=== PATIENT | male | born 1955 | race Caucasian/White ===

== ENCOUNTER 2021-01-01 08:35 | Day surgery (SDC) | payer MEDICARE, OTHER ==
[~2021-01-01 08:35] MED LIST: CEPH500 PO; THERA-D2000 UNIT PO; VITAMIN K-1500 MCG SL; Vitamin C100 M1 PO
--- NOTE | 2021-01-01 09:00 | NUR ---
patient arrived to [facility] recovery room. ambulated without difficulty. alert and oriented. denies chest pain or shortness of breath
--- NOTE | 2021-01-01 10:15 | NUR ---
Dr Nelson here to explain procedure and answer questions.
--- NOTE | 2021-01-01 13:15 | NUR ---
patient returned to [facility] recovery room via rcliner. A&O. denies pain. TR band in place to right radial artery. wrist board in place.
--- NOTE | 2021-01-01 13:52 | NUR ---
RIGHT RADIAL TR BAND SITE SOFT NON-TENDER WITH NO HEMATOMA,NO PULSATILE BLEEDING AND WRIST BOARD IN PLACE. SP02 PROBE ON RIGHT THUMB WITH SPO2 AT 97%. PT EATING LUNCH. PT DENIES CHEST PAIN. CALL LIGHT IN REACH.
--- NOTE | 2021-01-01 14:29 | NUR ---
RIGHT RADIAL SITE UNCHANGED. TR BAND AND WRIST BOARD REMAINS IN PLACE. REVIEW OF DISCHARGE INSTRUCTIONS GIVEN TO PATIENT ANDWIFE
--- NOTE | 2021-01-01 16:57 | NUR ---
PATIENT AND VERBALIZED UNDERSTANDING OF DISCHARGE INSTUCTIONS AND PRECAUTIONS. TR BAND REMOVED BY LAYLA AYERS. NO BLEEDING. NO HEMATOMA. CLOTH DOT PLACED OVER SITE. WRIST BOARD PLACED TO RIGHT WRIST. PATIENT TAKEN TO WAITING CAR WITH BY LAYLA AYERS.
== END 2021-01-01 22:59 | disposition home or self-care (01) ==
LOC: MHTC 08:35
DX: I35.0 Nonrheumatic aortic (valve) stenosis (principal); Z82.49 Family history of ischemic heart disease and other diseases of the circulatory system; Z88.8 Allergy status to other drugs, medicaments and biological substances
CPT/HCPCS: 76937; 93454; 99152; 99153; A9270; C1769; C1894; J1720; J2250; J3010; J7030; J7050; Q9967

== ENCOUNTER 2021-08-26 09:21 | Day surgery (SDC) | payer MEDICARE, OTHER ==
[~2021-08-26] VITALS: Ht 182.9 cm; Wt 74.0 kg
[2021-08-26] MEDS ORDERED: Aspir 8181 MG (10:20)
== END 2021-08-26 11:54 | disposition home or self-care (01) ==
LOC: ORSCSDS 09:21
PROVIDERS: Surgery
PROC: 0DBK8ZX Excision of Ascending Colon, Via Natural or Artificial Opening Endoscopic, Diagnostic (ICD-10-PCS; principal; 2021-08-26 10:45)
PROC: 0DBH8ZX Excision of Cecum, Via Natural or Artificial Opening Endoscopic, Diagnostic (ICD-10-PCS; principal; 2021-08-26 10:45)
DX: Z12.11 Encounter for screening for malignant neoplasm of colon (principal); Z86.010 Personal history of colon polyps; D12.0 Benign neoplasm of cecum; D12.2 Benign neoplasm of ascending colon; K57.30 Diverticulosis of large intestine without perforation or abscess without bleeding; I47.1 Supraventricular tachycardia; I35.0 Nonrheumatic aortic (valve) stenosis; Z79.82 Long term (current) use of aspirin
CPT/HCPCS: 88305; J2704; J7120

== ENCOUNTER → 2022-07-22 | Outpatient (CLI) | payer MEDICARE, OTHER ==
[~2022-07-22] MED LIST changes: +Aspir 8181 MG
== END | disposition home or self-care (01) ==
LOC: LAB 15:12 → LAB SHORT 15:12
DX: L03.031 Cellulitis of right toe (principal)
CPT/HCPCS: 87070; 87147; 87205

== ENCOUNTER 2024-09-23 16:08 | Emergency (ER) | payer MEDICARE, OTHER ==
[~2024-09-23] VITALS: Ht 182.9 cm; Wt 72.6 kg
[2024-09-23 17:00] VITALS: BP 140/97
== END 2024-09-23 18:40 | disposition home or self-care (01) ==
LOC: ER 16:08
DX: S66.922A Laceration of unspecified muscle, fascia and tendon at wrist and hand level, left hand, initial encounter (principal); Z95.2 Presence of prosthetic heart valve; Z91.048 Other nonmedicinal substance allergy status; Z88.8 Allergy status to other drugs, medicaments and biological substances; Z79.82 Long term (current) use of aspirin; Z79.899 Other long term (current) drug therapy; Z59.89 Other problems related to housing and economic circumstances; W26.0XXA Contact with knife, initial encounter
CPT/HCPCS: 12041; 99282-25